=== PATIENT | male | born 2000 | race Caucasian/White ===

== ENCOUNTER 2022-09-17 16:19 | Emergency (ER) | payer SELFPAY ==
[2022-09-17 16:37] VITALS: BP 154/98; PULSE 98; RESP 17; TEMP 36.5; O2SAT 98; BMI 34.4
--- NOTE | 2022-09-17 18:21 | ED_ITS ---
HPI - Dental/Oral <Angel Das PA-C - Last Filed: 09/17/22 19:49> General Chief complaint: Dental/Oral Stated complaint: Severe jaw pain Time Seen by Provider: 09/17/22 18:20 Source: patient Mode of arrival: Ambulatory History of Present Illness HPI Narrative: This is a 22-year-old male presents emergency department due to left lower molar pain onset 2 days ago. Patient states the pain has come out of nowhere. Described as dull and aching pain. Suspect that it is infected. States that he is already had a decaying tooth in the area. Denies any fevers, difficulty breathing or swallowing, nausea, vomiting, or any other concerning signs or symptoms. Related Data Previous Rx's Medication Instructions Recorded lidocaine HCl 2 % mucosal solution 1 applic mucous membrane Q8-12H 09/17/22 (Lidocaine Viscous) PRN pain #600 mL penicillin V potassium 250 mg 250 mg PO QID 10 days #40 tabs 09/17/22 tablet Allergies Allergy/AdvReac Type Severity Reaction Status Date / Time No Known Drug Allergies Allergy Verified 09/17/22 16:40 Review of Systems <Angel Das PA-C - Last Filed: 09/17/22 19:49> Review of Systems Narrative: GENERAL: Denies chills, fatigue, malaise, fever, sweats. HEENT: Reports dental pain, Denies sinus pain, ear pain, sore throat, difficulty swallowing, dizziness. RESPIRATORY: Denies dyspnea, cough, wheezing, hemoptysis, sputum. CARDIOVASCULAR: Denies chest pain, palpitations, orthopnea, edema, GASTROINTESTINAL: Denies nausea, vomiting, abdominal pain, diarrhea, constipation, melena. : Denies dysuria, frequency, incontinence, hematuria, urinary retention. MUSCULOSKELETAL: denies weakness, joint pain, or bony pain SKIN: Denies rash, skin lesions, or other NEUROLOGIC: Denies weakness, headache, numbness, change in speech, confusion, seizures, incoordination. PSYCHIATRIC: No concerning psychosocial issues. 12 point review of systems is negative except for those stated above Patient History <SHANDRA Fontanez Last Filed: 09/17/22 19:49> Social History Smoking Status: Never smoker Smoking Status: Never smoker alcohol intake frequency: other Substance Use Type: does not use Exam <SHANDRA Fontanez Last Filed: 09/17/22 19:49> Narrative Exam Narrative: GENERAL: Well-developed patient, in mild distress. HEAD: Atraumatic. Normocephalic. EYES: Pupils equal round and reactive. Extraocular motions intact. No scleral icterus. No injection or drainage. ENT: Tooth 17. Appears decayed with mild surrounding erythema. No evidence of any kind of oral abscesses at the gumline. Nose without bleeding, purulent drainage. Throat without erythema, tonsillar hypertrophy or exudate. Airway patent. NECK: Trachea midline. Non tender EXTREMITIES: No edema or joint tenderness. NEURO: AOx3. SKIN: No rash or erythema of visible areas Initial Vital Signs Initial Vital Signs: Vital Signs Temperature 97.7 F 09/17/22 16:37 Pulse Rate 98 H 09/17/22 16:37 Respiratory Rate 17 09/17/22 16:37 Blood Pressure 154/98 H 09/17/22 16:37 Pulse Oximetry 98 09/17/22 16:37 Oxygen Delivery Method Room Air 09/17/22 16:37 <Basilio Sommers DO - Last Filed: 09/18/22 17:19> Initial Vital Signs Initial Vital Signs: Vital Signs Temperature 97.7 F 09/17/22 16:37 Pulse Rate 98 H 09/17/22 16:37 Respiratory Rate 17 09/17/22 16:37 Blood Pressure 154/98 H 09/17/22 16:37 Pulse Oximetry 98 09/17/22 16:37 Oxygen Delivery Method Room Air 09/17/22 16:37 Course <SHANDRA Fontanez Last Filed: 09/17/22 19:49> Vital Signs Vital signs: Vital Signs - 8 hr 09/17/22 16:37 Temperature 97.7 F Pulse Rate 98 H Respiratory Rate 17 Blood Pressure 154/98 H Pulse Oximetry 98 Oxygen Delivery Method Room Air <DO Jorge Luis De Paz Last Filed: 09/18/22 17:19> Vital Signs Vital signs: Vital Signs - 8 hr 09/17/22 16:37 Temperature 97.7 F Pulse Rate 98 H Respiratory Rate 17 Blood Pressure 154/98 H Pulse Oximetry 98 Oxygen Delivery Method Room Air MDM - Dental/Oral <SHANDRA Fontanez Last Filed: 09/17/22 19:49> MDM Narrative Medical decision making narrative: MDM * differential diagnosis includes but not limited to peridontal abscess/dental infection, tooth avulsion * Prior records reviewed: Patient has not been seen in this emergency department in the past. * My lab interpretation: None obtained * My imgaing interpretation: None obtained * Clinical Decision Rules/Scores evaluated: None * Independent discussions with: None ED Course: This is a 22-year-old male presents emergency department due to suspected dental infection. On exam there does not appear to be any kind of periodontal or periapical abscesses that would benefit from incision and drainage. There were no evidence of any kind of peritonsillar abscesses. Will treat with oral antibiotics and viscous lidocaine as well as instructions to take ibuprofen and Tylenol as needed for the pain. Strongly recommended follow up with his dentist as soon as possible for further evaluation. Shared Decision Making: Discussed plan with patient who is comfortable with the plan. Social Considerations: None Disposition: Discharged to home Discharge Plan Departure Patient Disposition: Home Clinical Impression: Dental infection Instructions: DI for Dental Pain Activity Restrictions/Additional Instructions: Thank you for coming to the [facility] Emergency Department today. As we discussed I suspect you have a dental infection. Please take the oral antibiotics as prescribed to help treat the infection until you are able to follow-up with your dentist. You may use ibuprofen and Tylenol as needed for the pain. The viscous lidocaine prescribed should also help. I hope you feel better soon. Prescriptions: New penicillin V potassium 250 mg tablet 250 mg PO QID 10 Days Qty: 40 0RF lidocaine HCl [Lidocaine Viscous] 2 % solution 1 applic mucous membrane Q8-12H PRN (Reason: pain) Qty: 600 0RF Referrals: Miscellaneous,Doctor, [Primary Care Provider] - Stand Alone Forms: Patient Portal/API <Basilio Sommers DO - Last Filed: 09/18/22 17:19> [facility] ED Attending Richieature Attestation: I was immediately available in the department for consultation. This documentation has been reviewed and I agree with assessment and plan. Supervised by Basilio Sommers DO
== END 2022-09-17 19:14 | disposition home or self-care (01) ==
PROVIDERS: Emergency Provider Physician Assistant Medical
DX: K04.7 Periapical abscess without sinus (principal)
CPT/HCPCS: 99281